=== PATIENT | male | born 1960 | race African-American/Black ===

== ENCOUNTER 2024-03-23 14:55 | Emergency (ER) | payer MEDICAID ==
[~2024-03-23] VITALS: Ht 188 cm; Wt 105.0 kg
[~2024-03-23 14:55] MED LIST: METF500T3
[2024-03-23 15:08] VITALS: O2SAT 100
[2024-03-23 17:28] LABS: BASOPHILS % 0.8 % (0.0-2.0); EOSINOPHILS % 1.6 % (0.0-5.0); HEMOGLOBIN. 14.3 g/dL (14.0-18.0); LYMPHOCYTES % 26.6 % (20.0-50.0); MEAN CORPUSCULAR HEMOGLOBIN 28.6 pg (28.0-32.0); MEAN CORPUSCULAR HGB CONC 33.2 g/dL (31.0-37.0); MEAN CORPUSCULAR VOLUME 85.9 fL (80.0-94.0); MEAN PLATELET VOLUME 8.5 fl (7.4-10.4); MONOCYTES % 9.9 % (2.0-8.0); NEUTROPHILS % 61.1 % (40.0-76.0); PLATELET 166 x1000/uL (130-400); WHITE BLOOD COUNT 5.5 x1000/uL (4.5-11.0)
[2024-03-23 17:33] LABS: CHLORIDE 101 mEq/L (98-107); POTASSIUM 3.4 mEq/L (3.5-5.1); SODIUM 134 mEq/L (136-145)
[2024-03-23 17:35] LABS: CALCIUM 9.7 mg/dL (8.7-10.4); CARBON DIOXIDE 29 mEq/L (21-32)
[2024-03-23 17:39] LABS: PROTHROMBIN TIME 11.1 sec (9.6-11.0)
[2024-03-23 17:40] LABS: CREATININE 1.4 mg/dL (0.6-1.3); TROPONIN I HIGH SENSITIVITY 5 ng/L (3.0-53); UREA NITROGEN BLOOD 13 mg/dL (9-23)
[2024-03-23 17:42] LABS: ALANINE AMINOTRANSFERASE 19 IU/L (10-49); ALBUMIN 3.9 g/dL (3.2-4.8); ASPARTATE AMINOTRANSFERASE 14 IU/L (<34)
[2024-03-23 17:43] LABS: BILIRUBIN DIRECT 0.1 mg/dL (<=3.0); BILIRUBIN TOTAL 0.5 mg/dL (0.1-1.0); GLUCOSE 302 mg/dL (70-105); PROTEIN TOTAL 6.6 g/dL (6.0-8.3)
[2024-03-23] MEDS ORDERED: CYCLOBENZAPRINE 10MG TABLET PO NR (17:45)
[2024-03-23] MEDS: CYCLOBENZAPRINE 10MG TABLET PO NR (21:40)
[2024-03-23] MEDS: SODIUM CHLORIDE 0.9% 1,000 ML IV ONE (21:40)
[2024-03-23 22:30] LABS: TROPONIN I HIGH SENSITIVITY 6 ng/L (3.0-53)
[2024-03-23] MEDS ORDERED: IOHEXOL-350 100 ML BOTTLE ONE (23:28)
[2024-03-24 03:01] VITALS: BP 138/79; PULSE 89; RESP 17; TEMP 36.89184; O2SAT 99
== END 2024-03-24 03:05 | disposition home or self-care (01) ==
LOC: ER 14:55
DX: M62.838 Other muscle spasm (principal); E11.9 Type 2 diabetes mellitus without complications; I10 Essential (primary) hypertension; E78.5 Hyperlipidemia, unspecified
CPT/HCPCS: 99285; 71275; 74174; 96360; 71045; 96361; 80076; 80048; 83690; 85025; 85610; 84484; 36415; 70496; 70498; 93005; Q9967